=== PATIENT | male | born 1955 | race Caucasian/White ===

== ENCOUNTER 2019-12-13 08:23 | Emergency (ER) | payer BC, SELFPAY ==
--- NOTE | 2019-12-13 08:30 | ED.SKABFB ---
HPI - Skin/Abscess/Foreign Bdy General Chief complaint: Skin/Abscess/Foreign Body Stated complaint: rash on underarms and buttocks Time Seen by Provider: 12/13/19 08:38 Source: patient and RN notes reviewed Mode of arrival: ambulatory Limitations: no limitations History of Present Illness MD complaint: rash Related Data Home Medications Medication Instructions Recorded Confirmed lisinopril 2.5 mg tablet 2.5 mg PO DAILY 04/14/19 12/13/19 metoprolol tartrate 25 mg tablet 25 mg PO DAILY 04/14/19 12/13/19 sildenafil (pulm.hypertension) 20 20 mg PO .COMPLEX 04/14/19 12/13/19 mg tablet Allergies Allergy/AdvReac Type Severity Reaction Status Date / Time No Known Allergies Allergy Verified 12/13/19 08:39 Review of Systems Review of Systems: Narrative: CONSTITUTIONAL: Denies malaise, chills, sweats, or fever. EYES: Denies redness, or discharge. ENT: Denies swollen lips, swollen tongue CARDIOVASCULAR: Denies chest pain, palpitations, or edema. RESPIRATORY: Denies cough or dyspnea. GASTROINTESTINAL: Denies abdominal pain, nausea, vomiting, diarrhea SKIN: Reports itchy rash under bilateral arms, folds of groin, buttocks MUSCULOSKELETAL: Denies myalgia. NEUROLOGIC: Denies headache. All systems reviewed & are unremarkable except as noted in HPI and below PMFSH Social History Social History Smoking status: Never smoker Alcohol intake: current Comments At time of signature, agree with nursing past medical, surgical, social and family history. There is no relevant family history pertinent to the presenting complaint Exam Narrative: Exam Narrative: GENERAL: Well-appearing, well-nourished, and in no acute distress. HEAD: Normocephalic, atraumatic. EYES: PERRLA, conjunctivae clear, and EOMI. No nystagmus. ENT: Mucous membranes moist. NECK: Supple. CHEST: No respiratory distress. Speaks in full sentences. HEART: Regular rate and rhythm. SKIN: Warm, dry. Patch of erythematous rash noted in the bilateral axilla, groin consistent with candidiasis. NEURO: Alert and oriented x3. PSYCH: Normal mood and affect Course Course Emergency Course: Patient is aware of diagnosis, understands and agrees to treatment plan. Anticipatory guidance given. Patient agrees to follow-up as directed and is aware of reasons to seek care at the emergency department. Portions of this record may have been created with voice recognition software Vital Signs Vital signs: Vital Signs Temperature 98.2 F 12/13/19 08:32 Pulse Rate 88 12/13/19 08:32 Respiratory Rate 16 12/13/19 08:32 Blood Pressure 156/87 H 12/13/19 08:32 Pulse Oximetry 100 12/13/19 08:32 Temperature 98.2 F 12/13/19 08:32 Pulse Rate 88 12/13/19 08:32 Respiratory Rate 16 12/13/19 08:32 Blood Pressure 156/87 H 12/13/19 08:32 Pulse Oximetry 100 12/13/19 08:32 Reviewed. Patient has history of hypertension MDM - Skin/Abscess/Foreign Bdy MDM Narrative Medical decision making narrative: Does not appear at this time to be erythema multiforme, bullous, SJS, TEN; no evidence at this time to suggest RMSF, endocarditis or Lyme disease; patient looks well, nontoxic and is tolerating oral intake; no neurologic signs or symptoms; no headache, photophobia or neck pain; afebrile; appropriate for initial outpatient treatment; discussed the importance of follow-up, patient agrees; question, viral exanthema, contact dermatitis, allergic dermatitis, eczema, urticaria, Inga, tinea. No soft palate or uvula edema, no tongue, lip edema or other mucosal involvement, no respiratory compromise, no stridor, no wheezing, no wheezing, no history of syncope, no hypotension, no nausea, vomiting, or diarrhea. Instructed patient to go to nearest ER immediately for any worsening symptoms including but not limited to: fever, spreading rash, pain, sore throat, headache, dizziness, chest pain, trouble breathing, or any symptoms concerning to the patient. Critical Care Time
[2019-12-13 08:32] VITALS: BP 156/87; PULSE 88; RESP 16; TEMP 36.8; O2SAT 100
== END 2019-12-13 08:50 | disposition home or self-care (01) ==
PROVIDERS: Emergency Provider Nurse Practitioner
DX: B37.9 Candidiasis, unspecified (principal); I10 Essential (primary) hypertension; Z95.5 Presence of coronary angioplasty implant and graft; Z95.828 Presence of other vascular implants and grafts
CPT/HCPCS: 99213; G0463

== ENCOUNTER 2021-08-25 00:42 | Day surgery (SDC) | payer OTHER, SELFPAY ==
[2021-08-19 11:59] VITALS: BMI 29.9
[2021-08-25 09:56] VITALS: BP 154/83; PULSE 54; RESP 18; TEMP 36.1; O2SAT 100
--- NOTE | 2021-08-25 10:09 | WPDGICN ---
Assessment and Plan Assessment and plan (1) Encounter for screening colonoscopy: Code(s): Z12.11 - Encounter for screening for malignant neoplasm of colon Status: Acute Assessment and Plan: Patient presents for screening colonoscopy. A appears to be at average risk for colon polyps. GI Consult Note Consult date/time: 08/25/21 10:09 Reason for consult: neoplasia screening. HPI: Jason Bradley is a 66 year old male Presents for neoplasia screening. Patient has never had a colonoscopy previously. He reports that his current weight appetite and bowel movements are normal. He denies abdominal pain. Patient has had no bleeding. Family history is noncontributory. Past medical history is significant for coronary artery bypass grafting 8 years ago. Review of Systems Review of Systems: Noncontributory review of systems [facility] Past Medical History Medical History CAD (coronary artery disease) Erectile dysfunction Essential (primary) hypertension Heart attack PAD (peripheral artery disease) Upper respiratory tract infection Surgical History Surgical History H/O umbilical hernia repair (~2019) History of coronary artery bypass graft S/P peripheral artery angioplasty with stent placement (~09/2019) b/l Lower extremities Family History Family History Sibling Diabetes mellitus Hypertension Heart disease Mother Diabetes mellitus Father Heart disease Social History Social History Smoking status: Never smoker Alcohol intake: current Drinks per week: 7 Alcohol use details: WINE Substance use: never Substance use type: does not use Living arrangements: with family Additional living arrangements comments: Additional occupation/education comments: Self employed Gender identity (if verbalized by the patient): Male Sexual Orientation (if Verbalized by the Patient): Straight or Heterosexual Spiritual care concerns: No Meds Home Medications and Allergies Home Medications Medication Instructions Recorded Confirmed Type clopidogrel 75 mg tablet 75 mg PO DAILY 03/17/21 08/19/21 History lisinopril 10 mg tablet 10 mg PO BID 03/17/21 08/19/21 History nebivolol 10 mg tablet (Bystolic) 10 mg PO DAILY 07/14/21 08/19/21 History spironolactone 25 mg tablet 25 mg PO DAILY 07/14/21 08/19/21 History tadalafil 20 mg tablet (Cialis) 20 mg PO DAILY PRN sexual activity 07/14/21 08/19/21 Rx #30 tabs aspirin 81 mg tablet 81 mg PO DAILY 08/19/21 08/19/21 History Allergies Allergy/AdvReac Type Severity Reaction Status Date / Time No Known Allergies Allergy Verified 08/25/21 09:51 Vital Signs Vital Signs - 24 hr 08/25/21 09:56 Temperature 96.9 F L Pulse Rate 54 L Respiratory Rate 18 Blood Pressure 154/83 H Pulse Oximetry 100 Oxygen Delivery Room Air Exam Narrative: physical exam reveals patient to be alert. Vital signs stable. HEENT exam is unremarkable. Patient is anicteric. Lungs are clear to auscultation and percussion. Heart is without murmur or extra sounds. Abdominal exam bowel sounds are present soft nontender with no hepatosplenomegaly. Digital external rectal exam is normal.
[2021-08-25] MEDS: LACTATED RINGERS 1,000 ML 150 ML IV CONT (10:13)
[2021-08-25 11:38] VITALS: BP 122/69; PULSE 51; RESP 18; O2SAT 98
[2021-08-25 11:48] VITALS: BP 118/61; PULSE 50; RESP 18; O2SAT 99
[2021-08-25 11:58] VITALS: BP 136/71; PULSE 47; RESP 14; O2SAT 100
== END 2021-08-25 12:13 | disposition home or self-care (01) ==
PROVIDERS: PCP Family Medicine; Visit Provider Internal Medicine Gastroenterology
PROC: 0DJD8ZZ Inspection of Lower Intestinal Tract, Via Natural or Artificial Opening Endoscopic (ICD-10-PCS; CPT 45378; principal; 2021-08-25 10:45)
DX: Z12.11 Encounter for screening for malignant neoplasm of colon (principal); K57.30 Diverticulosis of large intestine without perforation or abscess without bleeding; K64.8 Other hemorrhoids; I25.10 Atherosclerotic heart disease of native coronary artery without angina pectoris; I10 Essential (primary) hypertension; I73.9 Peripheral vascular disease, unspecified; I25.2 Old myocardial infarction; Z95.1 Presence of aortocoronary bypass graft; Z95.820 Peripheral vascular angioplasty status with implants and grafts
CPT/HCPCS: G0121; J2704; J7120

== ENCOUNTER 2022-11-21 09:36 | Emergency (ER) | payer OTHER, SELFPAY ==
[2022-11-21 09:46] VITALS: BP 167/86; PULSE 57; RESP 20; TEMP 36.8; O2SAT 100
--- NOTE | 2022-11-21 10:04 | ED.SKABFB ---
HPI - Skin/Abscess/Foreign Bdy General Chief complaint: Skin/Abscess/Foreign Body Stated complaint: Posion Maryjo Time Seen by Provider: 11/21/22 10:05 Source: patient Mode of arrival: ambulatory Limitations: no limitations History of Present Illness HPI narrative: 67-year-old male presented for complaint of itchy red rash to both arms for about 1 week. He states the rash started after he trimmed hedges and is concerned for poison maryjo. Has been applying Benadryl cream and Maryjo rest cream. Denies pain or drainage. Denies lip, tongue, or throat swelling, shortness of breath or wheezing. Denies changes to soap, detergent, lotion, or any other exposures. No one else in the house or any contacts with similar symptoms. Related Data Home Medications Medication Instructions Recorded Confirmed clopidogrel 75 mg tablet 75 mg PO DAILY 03/17/21 08/24/22 lisinopril 10 mg tablet 10 mg PO BID 03/17/21 08/24/22 nebivolol 10 mg tablet (Bystolic) 10 mg PO DAILY 07/14/21 08/19/21 aspirin 81 mg tablet 81 mg PO DAILY 08/19/21 08/24/22 Allergies Allergy/AdvReac Type Severity Reaction Status Date / Time No Known Allergies Allergy Verified 08/24/22 09:18 Review of Systems Review of Systems: CONSTITUTIONAL: Denies body aches, fever, chills, or sweats. EYES: Denies visual changes, redness, or discharge. ENT: Denies rhinorrhea, congestion CARDIOVASCULAR: Denies chest pain, palpitations, or edema. RESPIRATORY: Denies cough or dyspnea. GASTROINTESTINAL: Denies abdominal pain, nausea, vomiting, or diarrhea. SKIN: reports itchy rash to arms MUSCULOSKELETAL: Denies back pain, joint pain, or myalgia. NEUROLOGIC: Denies headache, numbness, tingling, or weakness. [facility] Past Medical History Medical History CAD (coronary artery disease) Erectile dysfunction Essential (primary) hypertension Heart attack PAD (peripheral artery disease) Upper respiratory tract infection Surgical History Surgical History H/O umbilical hernia repair (~2019) History of coronary artery bypass graft S/P peripheral artery angioplasty with stent placement (~09/2019) b/l Lower extremities Family History Family History Sibling Diabetes mellitus Hypertension Heart disease Mother Diabetes mellitus Father Heart disease Social History Social History Smoking status: Never smoker Alcohol intake: current Drinks per week: 7 Alcohol use details: WINE Substance use: never Substance use type: does not use Lack of Transportation: No Lack of Food: Never True Current Housing: I Have Housing Concerned About Future Housing: No Difficulty Paying Gas/Electric Bills: No Difficulty Paying for Meds: No Currently Unemployed: No Education: High School Diploma/GED Difficulty w/ Childcare or Family Care: No Living arrangements: with family Additional living arrangements comments: Occupation/Education: occupation Additional occupation/education comments: Self employed Gender identity (if verbalized by the patient): Male Sexual Orientation (if Verbalized by the Patient): Straight or Heterosexual Spiritual care concerns: No Comments At time of signature, I have reviewed and agree with nursing past medical, surgical, social and family history unless otherwise noted. Please see nursing chart for further information. There is no relevant family history pertinent to the presenting complaint Exam Narrative: GENERAL: Well-appearing HEAD: Normocephalic, atraumatic. EYES: conjunctivae clear, and EOMI. ENT: Mucous membranes moist. Oropharynx without edema, erythema or lesions. NECK: Supple. No lymphadenopathy CHEST: Clear to auscultation. HEART: Regular rate and rhythm. SKIN: Warm, dry. Erythematou
== END 2022-11-21 10:14 | disposition home or self-care (01) ==
PROVIDERS: Emergency Provider Nurse Practitioner Family; PCP Family Medicine
DX: L25.5 Unspecified contact dermatitis due to plants, except food (principal); I25.10 Atherosclerotic heart disease of native coronary artery without angina pectoris; I10 Essential (primary) hypertension; I73.9 Peripheral vascular disease, unspecified; I25.2 Old myocardial infarction; Z79.82 Long term (current) use of aspirin
CPT/HCPCS: 99213; G0463

== ENCOUNTER → 2023-04-04 14:03 | Outpatient (CLI) | payer OTHER, SELFPAY ==
--- NOTE | ~2023-04-04 | XR_ITS ---
XR hip LT min 2V DATE: 04/04/2023 14:20 INDICATION: Left hip pain. Skin anesthesia. TECHNIQUE: AP and lateral views of left hip COMPARISON: None FINDINGS: No fracture, dislocation, avascular necrosis or bone destruction of the left hip is detecte d. Vascular stent overlies the proximal left thigh. IMPRESSION: Negative left hip Reviewed, dictated and finalized at location B. [employer] IMPRESSION: Negative left hip
--- NOTE | ~2023-04-04 | XR_ITS ---
XR lumbar spine 2-3V DATE: 04/04/2023 14:20 INDICATION: Left hip pain TECHNIQUE: AP, lateral, coned lateral lumbosacral views COMPARISON: None FINDINGS: Mild lumbar levoscoliosis. There is degenerative spurring of the lower thoracic and lumbar spine. There is mild degenerative disc disease at L1-2, L2-3 and moderate degenerative disease at L3-4 and L 4-5. The L5-S1 interspace is well preserved. There is prominent degenerative changes apophyseal joints of the mid and lower lumbar and lumbosacral area with associated grade 2 anterolisthesis at L4-5. The lumbar pedicles are intact. No fracture or bone destruction is detected. The sacroiliac joints are intact. IMPRESSION: Grade 2 anterolisthesis at L4-5 due to degenerative change at the apophyseal joints Multilevel degenerative disc disease Mild levoscoliosis Reviewed, dictated and finalized at location B. [employer] IMPRESSION: Grade 2 anterolisthesis at L4-5 due to degenerative change at the a pophyseal joints Multilevel degenerative disc disease Mild levoscoliosis
== END ==
PROVIDERS: PCP Family Medicine; Visit Provider Nurse Practitioner Family
DX: M43.06 Spondylolysis, lumbar region (principal); M41.86 Other forms of scoliosis, lumbar region
CPT/HCPCS: 72100; 73502

== ENCOUNTER 2023-11-15 15:26 | Outpatient (CLI) | payer OTHER, SELFPAY ==
[2023-11-15 17:59] LABS: Basophils Absolute Auto 0.1 K/mm3 (0.0-0.1); Basophils Percent Auto 0.9 % (0.2-1.2); Eosinophils Absolute Auto 0.2 K/mm3 (0-0.3); Eosinophils Percent Auto 2.9 % (0-4.4); Hematocrit 41.8 % (42.0-52.0); Hemoglobin 14.8 g/dL (14.0-18.0); Immature Granulocyte Absolute 0.01 K/mm3 (0.00-0.031); Immature Granulocyte Percent A 0.2 % (0-0.5); Lymphocytes Absolute Auto 1.43 K/mm3 (0.9-3.2); Lymphocytes Percent Auto 25.5 % (18.3-44.2); Mean Corpuscular HGB Conc 35.4 g/dl (32-36); Mean Corpuscular Hemoglobin 35.1 pg (26-34); Mean Corpuscular Volume 99.1 fl (80-100); Mean Platelet Volume 9.7 fl (7.4-10.4); Monocytes Absolute Auto 0.8 K/mm3 (0.1-0.6); Monocytes Percent Auto 13.5 % (2.6-8.5); Neutrophils Absolute Auto 3.2 K/mm3 (1.3-6.7); Platelet Count Result 216 k/mm3 (150-375); Red Blood Count 4.22 M/mm3 (4.6-6.20); Red Cell Distribution Width 12.2 % (11.5-14.5); White Blood Count 5.6 K/mm3 (4.5-10.0)
[2023-11-15 18:08] LABS: Alanine Aminotransferase 37 U/L (6-50); Albumin Level 4.4 g/dL (3.5-5.1); Alkaline Phosphatase 53 U/L (38-126); Anion Gap 9 mmol/L (4-12); Aspartate Amino Transferase 65 U/L (17-59); Bilirubin,Total 0.9 mg/dL (0.2-1.3); Blood Urea Nitrogen 21 mg/dL (9-20); Calcium 9.5 mg/dL (8.4-10.2); Carbon Dioxide 32 mmol/L (22-30); Chloride 95 mmol/L (98-107); Estimated Glomerular Filt Rate 60; Glucose 88 mg/dL (65-110); Potassium 4.1 mmol/L (3.4-5.0); Sodium 136 mmol/L (137-145)
[2023-11-15 18:28] LABS: Vitamin D 25 Hydroxy 33.8 ng/mL
[2023-11-15 18:34] LABS: Hemoglobin A1C 4.9 % (<5.7)
[2023-11-15 18:35] LABS: Prostate Specific Antigen 1.3 ng/mL (< OR = 4.0)
== END 2023-11-15 15:27 | disposition home or self-care (01) ==
LOC: ANHGOSHLAB 15:27
PROVIDERS: PCP Family Medicine; Visit Provider Family Medicine
DX: E53.8 Deficiency of other specified B group vitamins (principal); E55.9 Vitamin D deficiency, unspecified; I25.10 Atherosclerotic heart disease of native coronary artery without angina pectoris; Z00.00 Encounter for general adult medical examination without abnormal findings; R73.9 Hyperglycemia, unspecified; Z12.5 Encounter for screening for malignant neoplasm of prostate; I10 Essential (primary) hypertension
CPT/HCPCS: 36415; 80053; 82306; 82607; 83036; 84153; 85025; G0103